=== PATIENT | female | born 1985 ===

== ENCOUNTER → 2019-09-26 | Outpatient (CLI) | payer BC, OTHER ==
[~2019-09-26] VITALS: Ht 165.1 cm; Wt 98.9 kg
[~2019-09-26] MED LIST: MEDROLDOSEPACK PO; MOBIC15 MG PO; VITAMIN D-40010 MCG PO
[2019-09-26 11:13] VITALS: BP 123/83
--- NOTE | 2019-09-26 11:32 | NUR ---
Pain Clinic Assessment: 1. History of Osteoarthritis: Not Applicable History of Rheumatoid Arthritis: Not Applicable 2. Height: 5 ft. 5 in. 165.1 cm. Weight: 218.0 lb. oz. 98.884 kg. Patient's BMI: 36.3 3. Vital Signs: BP: 123/83 Pulse: 64 Resp: 16 Temp: 02 Sat: 100 ECG Mon: 4. Pain Intensity: 7-9 5. Fall Risk: Dizziness: N Needs help standing or walking: N Fallen in the last 3 months: N Fall risk comments: 6. Patient on Blood Thinner: None 7. History of Hypertension: N 8. Opioid Therapy greater than 6 weeks: N Opiate Contract Signed: 9. Risk Assessment Tool Provided: 1-LOW RISK 10. Functional Assessment Tool: 37 11. Recreational Drug Use: Never Drug Type: Tobacco Use: Never Smoker Tobacco Type: Amount or Packs/day: How Many Years: Alcohol Use: No Frequency: Quant:
--- NOTE | 2019-10-05 15:47 | HPC ---
[facility] [address] [place] [address] PAIN MANAGEMENT CONSULTATION Name: MARAH CRAWFORD Room #: REG GILES [facility].#: [id number] Admission: 09/26/19 Attend Phys: Enedina Salgado MD Discharge: Date of : 81 Report #: [id number] THIS REPORT FOR: cc: [facility] - No family physician/PCP JORDAN - Marva family physician/PCP Enedina Salgado MD ~ CC: [facility] physician/PCP Zakiya Salgado DATE OF SERVICE: 09/26/2019 CHIEF COMPLAINT: Low back pain as well as deep pain in the hips and down to the legs. HISTORY: The patient is a 34-year-old female who has been referred to the Pain Clinic for evaluation. The patient has noted over the last 2-3 years of chronic pain. She describes pain in the low back area. She has pain, which she describes as deep. There is a burning component to it. Notes that if she stands too long or sits, she noted some aching pain and discomfort in her hip. She has some pain down into her legs. She feels that it sometimes improves with stretching. She rates it as a 7/10 at this point. She denies any injuries. Denies any bowel or bladder dysfunction. She has some generalized pain in the shoulders, midback, left arm, lower back, left and right buttocks, posterior calf and legs. She feels that this is constant pain slows her down. She has not had physical therapy. Started to note some of the problems after . After certain activities such as playing with her children, she feels like she is unable to do much the following day. ALLERGIES: No known drug allergies. CURRENT MEDICATIONS: multivitamins. PAST MEDICAL HISTORY: Eczema as a child, depression, STD, palpations, hospitalized for suicidal attempt for medication overdose in 2011 and asthma as well. PAST SURGICAL HISTORY: 2005, 2016, and laparoscopic bilateral salpingectomies 2018. SOCIAL HISTORY: She works as a case aide. She is working at this juncture. REVIEW OF SYSTEMS: Questionnaire, generally good health, fatigue, weakness, wears glasses, palpitations, shortness of breath when lying flat, walking, hot and cold intolerance, insomnia, numbness and tingling sensations, and varicose veins. [address] [address] PAIN MANAGEMENT CONSULTATION Name: MARAH CRAWFORD Room #: REG GILES [facility].#: [id number] Admission: 09/26/19 Attend Phys: Enedina Salgado MD Discharge: Date of : 81 Report #: [id number] LABORATORY DATA: No new x-ray values are available at the time of our interview. PAIN CLINIC ASSESSMENT AND PQRS: 1. The patient is not being treated for osteoarthritis. She is not being treated for rheumatoid arthritis. 2. Height 5 feet 5 inches, weight 218 pounds, BMI 36.3. 3. Vital Signs: Blood pressure 123/83, pulse 64, respiratory rate 16, and room air saturation 100%. 4. Pain intensity 7-8/10. 5. Fall history: The patient has not fallen in the last 3 months. 6. Blood thinner. The patient is not on a blood thinning medication. 7. Hypertension. The patient is not being treated for hypertension. 8. Risk assessment tool for opioids, high. 9. Functional assessment tool 37/70. 10. Recreational drug use. The patient denies. 11. Tobacco: The patient denies. PHYSICAL EXAMINATION: GENERAL: The patient is a well-developed, well-nourished black female, appears her stated age. She is alert and oriented x 3. Her affect is appropriate. Speech is fluent. HEENT: Normocephalic, atraumatic. Extraocular eye muscles intact. Sclerae nonicteric. Mucous membranes are moist. NECK: Without adenopathy or JVD. HEART: Regular rate. LUNGS: Clear to auscultation. MUSCULOSKELETAL: Upper extremity muscle strength judged to be 5/5 for the major muscle groups in the upper extremity. The patient is wearing a mask. Lower extremity muscle strength judged to be 5/5 for the major muscle groups in the lower extremity. Anterior and posterior spring tests are negative. Reinaldo's test is negative. Deep tendon reflexes are trace in the biceps, knees and +2 at the ankles. The patient has a number of trigger points. They located in the trapezius, rhomboids, and latissimus dorsi. A left and right gluteal area and complains of some numbness and tingling in the stocking glove distribution in her legs. Straight leg raises were negative. RECOMMENDATION: The patient is having pain and discomfort. She states that she has had it for a number of years. Notes the pain is worse with certain activities. She has not had physical therapy. I think that might be an option. At this juncture, I am not finding clinical findings consistent with lumbar radiculopathy. Pressure in the low back area reproduces a component of her pain, but this does not seem to be sciatic today on this evaluation. We would recommend that the patient try physical therapy. We will also have the patient try a Medrol Dosepak and note its efficacy. The patient has a number of places, [facility] [address] [place] [address] PAIN MANAGEMENT CONSULTATION Name: MARAH CRAWFORD Room #: REG [facility].#: [id number] Admission: 09/26/19 Attend Phys: Enedina Salgado MD Discharge: Date of : 81 Report #: [id number] which seems to be myofascial in nature. We will have her try Mobic 15 mg 1 p.o. b.i.d. Use of medictions such as gabapentin or lyrica might be hulful in fht future. She can return to the Pain Clinic in the future. We would like to thank you for letting us participate in her care. We hope she continues to improve. <ELECTRONICALLY SIGNED> By: Enedina Salgado MD 10/05/19 [id number] Enedina Salgado MD /nt
== END ==
LOC: PAIN 07:01
PROVIDERS: ATTEND Anesthesiology Pain Medicine
DX: M54.5 Low back pain (principal); M25.552 Pain in left hip; M25.551 Pain in right hip